=== PATIENT | female | born 1975 | race Caucasian/White ===

== ENCOUNTER 2016-12-24 21:27 | Day surgery (SDCO) | payer OTHER ==
[2016-12-24 22:28] LABS: BASOPHIL 0.3 % (0-2); EOSINOPHIL 1.2 % (0-5); HCT 37.7 % (37.0-47.0); HGB 13.3 g/dl (12.5-16.0); LYMPHOCYTE 21.5 % (15-48); MCHC 35.3 g/dL (32.0-36.0); MCV 82.3 fL (78.0-100.0); MPV 9.7 fL (6.0-9.5); PLT 432 K/uL (150-400); RBC 4.58 M/uL (4.20-5.40); RDW 13.1 % (11.5-14.0); WBC 10.3 K/uL (4.0-10.5)
[2016-12-24 22:40] LABS: ALBUMIN 4.5 g/dL (3.5-5.0); BILIRUBIN - TOTAL 0.6 mg/dL (0.1-1.0); CREATININE 1.6 mg/dL (0.5-1.0); GLOBULIN (CALCULATION) 3.1 g/dL (2.2-4.2); TOTAL PROTEIN 7.6 g/dL (6.4-8.3)
[2016-12-24 22:46] LABS: POTASSIUM 2.5 mmol/L (3.5-5.1)
[2016-12-24 23:02] LABS: BILIRUBIN NEGATIVE (NEGATIVE); BLOOD TRACE-INTACT Ery/uL (NEGATIVE); CLARITY CLEAR (CLEAR); COLOR YELLOW (YELLOW); GLUCOSE (U) NORMAL (NORMAL); KETONE (U) NEGATIVE (NEGATIVE); LEUKOCYTES TRACE Leu/uL (NEGATIVE); NITRITE NEGATIVE (NEGATIVE); PROTEIN NEGATIVE (NEGATIVE); UROBILINOGEN 0.2 mg/dL (0.2-1.0)
[2016-12-25 03:49] LABS: URINE CREATININE 36.3 mg/dL (29-226)
[2016-12-25 04:03] LABS: BASOPHIL 0.1 % (0-2); EOSINOPHIL 0.5 % (0-5); HCT 33.2 % (37.0-47.0); HGB 11.5 g/dl (12.5-16.0); LYMPHOCYTE 23.4 % (15-48); MCHC 34.6 g/dL (32.0-36.0); MCV 83.8 fL (78.0-100.0); MONOCYTE 7.3 % (0-12); MPV 9.4 fL (6.0-9.5); NEUTROPHIL 68.7 % (41-80); PLT 362 K/uL (150-400); RBC 3.96 M/uL (4.20-5.40); RDW 13.1 % (11.5-14.0); WBC 7.7 K/uL (4.0-10.5)
[2016-12-25 04:19] LABS: CKMB 1.33 ng/mL (0.97-4.94); TROPONIN T < 0.010 ng/mL
[2016-12-25 04:21] LABS: CREATININE 1.1 mg/dL (0.5-1.0); POTASSIUM 3.6 mmol/L (3.5-5.1)
[2016-12-25 10:30] LABS: CKMB 1.37 ng/mL (0.97-4.94); TROPONIN T < 0.010 ng/mL
[2016-12-25 11:51] LABS: INR 1.05 (0.9-1.2); PROTHROMBIN TIME 13.3 SECONDS (11.7-14.0); PTT 29.2 SECONDS (23.2-31.4)
== END 2016-12-25 14:25 | disposition other institution (70) ==
LOC: FER 21:27 → FTCU 23:00
PROVIDERS: Emergency Medicine; ADMIT Internal Medicine
DX: R07.9 Chest pain, unspecified (principal); R55 Syncope and collapse; I10 Essential (primary) hypertension; N17.9 Acute kidney failure, unspecified; E87.6 Hypokalemia; E78.5 Hyperlipidemia, unspecified; Z98.890 Other specified postprocedural states; Z79.899 Other long term (current) drug therapy
CPT/HCPCS: 36415; 70450; 71010; 80048; 80053; 80061; 81001; 82550; 82553; 82570; 83036; 84156; 84443; 84484; 84703; 85025; 85610; 85730; 90471; 90715; 93005; G0378; J1644